=== PATIENT | female | born 1980 | race Two or more races ===

== ENCOUNTER 2018-03-13 22:34 | Emergency (ER) ==
[~2018-03-13] VITALS: Ht 157.5 cm; Wt 64.4 kg
[2018-03-13 23:22] LABS: BASOPHIL (%) 0.4 % (0-1); EOSINOPHIL (%) 0.4 % (0-5); HEMATOCRIT 38.7 % (36.0-46.0); HEMOGLOBIN 13.3 G/DL (11.9-15.5); IMMATURE GRANULOCYTE (%) 0.3 % (0.0-0.7); LYMPHOCYTE (%) 31.1 % (15-42); LYMPHOCYTE COUNT 2.3 K/uL (1.0-2.8); MCH 31.4 PG (29.0-34.0); MCHC 34.4 G/DL (30.0-36.0); MCV 91.5 FL (83-99); MONOCYTE (%) 6.9 % (3-12); MONOCYTE COUNT 0.5 K/uL (0-0.8); NEUTROPHIL (%) 60.9 % (45-76); NEUTROPHIL COUNT 4.5 K/uL (1.8-6.4); PLATELET COUNT 204 K/uL (156-360); RBC DIS.WIDTH-CV 12.2 % (11.8-14.6); RBC DIS.WIDTH-SD 40.4 % (39-53); RED BLOOD COUNT 4.23 M/uL (3.80-5.20); WHITE BLOOD COUNT 7.4 K/uL (4.1-10.2)
[2018-03-13 23:36] LABS: ALBUMIN 4.4 g/dL (3.2-4.8); CHLORIDE 107 mEq/L (99-109); POTASSIUM 4.2 mEq/L (3.7-5.4); SODIUM 141 mEq/L (136-147)
[2018-03-13 23:38] LABS: GLUCOSE 94 mg/dL (70-99)
[2018-03-13 23:39] LABS: TOTAL PROTEIN 6.9 g/dL (6.4-8.3)
[2018-03-13 23:40] LABS: TOTAL BILIRUBIN 0.8 mg/dL (0.0-1.0)
[2018-03-13 23:42] LABS: ALKALINE PHOSPHATASE 42 IU/L (3-129); CREATININE 0.8 mg/dL (0.6-1.3)
[2018-03-13 23:43] LABS: UREA NITROGEN (BUN) 15 mg/dL (9-23)
[2018-03-13 23:44] LABS: AST (GOT) 18 IU/L (2-34); DIRECT BILIRUBIN 0.3 mg/dL (0.0-0.3)
[2018-03-13 23:45] LABS: ALT (GPT) 19 IU/L (3-49)
[2018-03-13 23:51] LABS: QUANTITATIVE HCG < 4.0 MIU/ML
[2018-03-13 23:52] LABS: GFR ESTIMATE (CALCULATED) > 59 mL/min/
[2018-03-15 11:46] LABS: HEPATITIS B SURFACE ANTIBODY REACTIVE; HEPATITIS C ANTIBODY Nonreactive; HIV-1/2 AB/AG COMBO Nonreactive
== END 2018-03-14 00:01 | disposition home or self-care (01) ==
LOC: EME 22:34
PROVIDERS: Physician Assistant
DX: Z77.21 Contact with and (suspected) exposure to potentially hazardous body fluids (principal); W46.0XXA Contact with hypodermic needle, initial encounter; Y99.0 Civilian activity done for income or pay
CPT/HCPCS: 80048; 80076; 84702; 85025; 86706; 86803; 87389